=== PATIENT | female | born 1990 ===

== ENCOUNTER 2024-11-07 03:26 | Inpatient (IN) ==
[2024-11-07] MEDS ORDERED: LIDOCAINE 1% LOCAL 20 ML VIAL INFIL PRN (05:11)
[2024-11-07 06:19] LABS: Hematocrit (blood only) 40.1 % (37.0-47.0); Hemoglobin 13.9 g/dl (12.0-16.0); Mean Corpuscular Hemoglobin 31.2 pg (25.0-34.0); Mean Corpuscular Volume 89.9 fL (80.0-100.0); Platelet Count 174 K/uL (130-400); RDW Standard Deviation 46.0 fL (36.4-46.3); Red Blood Count 4.46 M/uL (4.20-5.40); White Blood Count 10.44 K/ul (4.8-10.8)
--- NOTE | 2024-11-07 07:17 | Anesthesiology Consultation ---
Date of Service November 07, 2024 Assessment & Plan (1) Encounter for pre-operative examination: Chart Review Chart Review: Patient NOT seen in Pre Admission Testing and Acceptable Risk for Labor Epidural Consults Requested none History Height/Weight Height: 5 ft 5 in Weight: 112 kg Allergies Allergy/AdvReac Type Severity Reaction Status Date / Time cefaclor Allergy Hives Verified 11/07/24 03:57 cefixime Allergy Hives Verified 11/07/24 03:57 ciprofloxacin Allergy Hives Verified 11/07/24 03:57 Sulfa (Sulfonamide Allergy Hives Verified 11/07/24 03:57 Antibiotics) Medications Home Medications Medication Instructions Recorded Confirmed Last Taken doxylamine succinate 25 mg tablet 25 mg PO HS PRN Insomnia 11/07/24 11/07/24 Unknown (Unisom (doxylamine)) ferrous sulfate 325 mg (65 mg 325 mg PO DAILY 11/07/24 11/07/24 11/06/24 iron) tablet loratadine 10 mg capsule 10 mg PO DAILY PRN allergies 11/07/24 11/07/24 Unknown vits no.133-ferrous 1 tab PO DAILY 11/07/24 11/07/24 11/06/24 fumarate 28 mg-folic acid 800 mcg tablet () sertraline 25 mg tablet (Zoloft) 25 mg PO HS 11/07/24 11/07/24 11/06/24 Past Medical History Medical History Anxiety Social History Smoking Status: Never smoker Hx Alcohol Use: No Hx Substance Use: No substance use type: does not use Physical Exam Vital Signs Last Vital Signs Temp 98.2 F 11/07/24 04:05 Pulse 86 11/07/24 07:13 Resp 18 11/07/24 04:05 BP 149/83 H 11/07/24 07:13 Testing Laboratory Results 11/07/24 05:59
[2024-11-07] MEDS ORDERED: diphenhydrAMINE 50 MG/ML VIAL IV PRN (07:18)
[2024-11-07] MEDS ORDERED: ROPIVACAINE 0.5% PF 5 MG/ML 20 ML VIAL EPI PRN (07:18)
[2024-11-07] MEDS ORDERED: NALBUPHINE HCL INJ 10 MG/ML AMP IV PRN (07:18)
[2024-11-07] MEDS ORDERED: NALOXONE HCL 1 MG in SODIUM CHLORIDE 0.9% 1,000 ML IV PRN (07:18)
[2024-11-07] MEDS ORDERED: LIDOCAINE 2% MPF LOCAL 5 ML VIAL EPI PRN (07:18)
[2024-11-07] MEDS ORDERED: BUPIVACAINE 0.25% PF 30 ML VIAL EPI PRN (07:18)
[2024-11-07] MEDS: LACTATED RINGER'S 1,000 ML IV PRN (07:18)
[2024-11-07] MEDS ORDERED: SODIUM CHLORIDE 0.9% PF INJ 10 ML VIAL EPI PRN (07:18)
[2024-11-07] MEDS ORDERED: NALOXONE HCL 0.4 MG/1 ML VIAL/CARP IV PRN (07:18)
[2024-11-07] MEDS: fentANYL 2 MCG/ML BUPIVacaine 0.125%-NSS 100ML BAG ONE (07:38)
[2024-11-07] MEDS: LIDOCAINE 2%/EPINEPHRINE 1:200,000 20 ML PF ONE (07:38)
[2024-11-07] MEDS: BUPIVACAINE 0.25% PF 30 ML VIAL ONE (07:39)
[2024-11-07] MEDS: LIDOCAINE 2%/EPINEPHRINE 1:200,000 20 ML PF EPI STA (08:37)
[2024-11-07] MEDS: SODIUM CHLORIDE 0.9% PF INJ 10 ML VIAL EPI STA (08:37)
[2024-11-07] MEDS: SODIUM CHLORIDE 0.9% PF INJ 10 ML VIAL ONE (08:37)
[2024-11-07] MEDS: BUPIVACAINE 0.25% PF 30 ML VIAL EPI STA (08:37)
--- NOTE | 2024-11-07 08:58 | History & Physical Report ---
Date of Service November 07, 2024 Assessment & Plan (1) Uterine contractions at greater than 20 weeks of gestation: Plan: 34-year-old -0-0-1 at 39 weeks and 6 days of gestation Admitted today in early labor, epidural in place, comfortable, Vital signs stable afebrile, GBS negative, Contractions spaced out, Plan to monitor, augment with oxytocin per protocol, patient desires to rest and delay AROM if possible, All questions were answered. (2) Anxiety: (3) MTHFR mutation: Plan: heterozygous, no history of DVT Admission and Anticipated Discharge Date Admission Date: November 07, 2024 History of Present Illness Primary Care Provider: NO PCP Patient is a 34-year-old -0-0-1 at 39 weeks and 6 days of gestation who was admitted this morning by Dr. Malik for labor. Patient started have contractions around 10:30 PM last night they got more regular and painful around 3 AM when she came in. She denied leakage of fluid or vaginal bleeding. She reported good movements. She was painful and asked for epidural and she already had 1 and comfortable now. Her has been uncomplicated except 1. Anxiety during , on Zoloft and stable, 2. Obesity during , 3. History of MTFR mutation, heterozygous, never had DVT Allergies Allergy/AdvReac Type Severity Reaction Status Date / Time cefaclor Allergy Hives Verified 11/07/24 03:57 cefixime Allergy Hives Verified 11/07/24 03:57 ciprofloxacin Allergy Hives Verified 11/07/24 03:57 Sulfa (Sulfonamide Allergy Hives Verified 11/07/24 03:57 Antibiotics) Home Medications Medication Instructions Recorded Confirmed Type doxylamine succinate 25 mg tablet 25 mg PO HS PRN Insomnia 11/07/24 11/07/24 History (Unisom (doxylamine)) ferrous sulfate 325 mg (65 mg 325 mg PO DAILY 11/07/24 11/07/24 History iron) tablet loratadine 10 mg capsule 10 mg PO DAILY PRN allergies 11/07/24 11/07/24 History vits no.133-ferrous 1 tab PO DAILY 11/07/24 11/07/24 History fumarate 28 mg-folic acid 800 mcg tablet () sertraline 25 mg tablet (Zoloft) 25 mg PO HS 11/07/24 11/07/24 History Patient History Medical History Anxiety Social History Smoking Status: Never smoker Hx Alcohol Use: No Hx Substance Use: No Preferred Language: [place] Communication Ability: Effective Visual Impairment: No Limitations Hearing Ability: Normal Dental Office Assistant Required: No Beliefs That Will Affect Care: None marital status: marital status details: Daniel (35) [phone] Current Living Situation: Spouse and Family Current Living Situation Comment: lives with , daughter, 1 dog current occupational status: employed 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 Review of Systems as per Subjective / HPI Physical Exam Constitutional: WD/WN, vitals as above well developed, well nourished and comfortable Genitourinary: normal external appearance OB Exam Abdomen: + vertex Manual OB Exam: + cervical dilation 4 cm, + cervical effacement 50% and + station high OB Exam Monitor Tracing: + external uterine monitor used and + category I Results & Data Vital Signs (Past 12 Hours) Vital Signs Temp Pulse Resp BP Pulse Ox Pulse Ox 11/07/24 08:50 100 11/07/24 08:50 100 H 11/07/24 08:45 100 11/07/24 08:45 110 H 11/07/24 08:40 100 11/07/24 08:40 100 H 11/07/24 08:35 100 11/07/24 08:35 94 H 11/07/24 08:35 148/76 H 11/07/24 08:30 100 11/07/24 08:30 104 H 11/07/24 08:25 100 11/07/24 08:25 91 H 11/07/24 08:20 100 11/07/24 08:20 103 H 11/07/24 08:20 100 H 11/07/24 08:20 156/75 H 11/07/24 08:15 100 11/07/24 08:15 91 H 11/07/24 08:10 100 11/07/24 08:10 96 H 11/07/24 08:07 95 H 11/07/24 08:07 159/87 H 11/07/24 08:05 100 11/07/24 08:05 93 H 11/07/24 08:00 100 11/07/24 08:00 93 H 11/07/24 07:55 100 11/07/24 07:55 92 H 11/07/24 07:50 99 11/07/24 07:50 88 11/07/24 07:49 87 11/07/24 07:49 129/71 11/07/24 07:47 88 11/07/24 07:47 126/63 11/07/24 07:45 18 11/07/24 07:45 98 11/07/24 07:45 87 11/07/24 07:45 92 H 11/07/24 07:45 129/64 11/07/24 07:43 92 H 11/07/24 07:43 128/60 11/07/24 07:41 91 H 11/07/24 07:41 138/64 11/07/24 07:40 98 11/07/24 07:40 88 11/07/24 07:39 89 11/07/24 07:39 143/77 H 11/07/24 07:37 82 11/07/24 07:37 126/64 11/07/24 07:36 93 H 11/07/24 07:36 112/50 L 11/07/24 07:35 98 11/07/24 07:35 95 H 11/07/24 07:32 98 11/07/24 07:30 18 11/07/24 07:30 37.0 C 18 11/07/24 07:30 90 11/07/24 07:30 102 H 11/07/24 07:25 100 11/07/24 07:25 94 H 11/07/24 07:20 98 11/07/24 07:20 95 H 11/07/24 07:13 86 11/07/24 07:13 149/83 H 11/07/24 07:12 90 11/07/24 07:12 180/89 H 11/07/24 04:05 36.8 C 18 11/07/24 03:50 94 H 126/82 Diagnostic Findings Lab Results 11/07/24 Range/Units 05:59 WBC 10.44 (4.8-10.8) K/ul RBC 4.46 (4.20-5.40) M/uL Hgb 13.9 (12.0-16.0) g/dl Hct 40.1 (37.0-47.0) % MCV 89.9 (80.0-100.0) fL MCH 31.2 (25.0-34.0) pg MCHC 34.7 (32.0-36.0) g/dL RDW Std Deviation 46.0 (36.4-46.3) fL RDW Coeff of Saravanan 14.1 (11.5-14.5) % Plt Count 174 (130-400) K/uL MPV 10.0 (9.4-12.4) fL Blood Type B Positive Antibody Screen NEGATIVE
[2024-11-07] MEDS: OXYTOCIN 30 UNITS/NSS 30 UNITS/500 ML BAG IV PRN ×2 (09:05→17:54)
--- NOTE | 2024-11-07 13:23 | Obstetrical Progress Note ---
Date of Service November 07, 2024 Assessment & Plan Admission and Anticipated Discharge Date Admission Date: November 07, 2024 Subjective Patient is still comfortable, no pain or pressure, heart rate category 1, had early decelerations earlier, Contractions every 2 to 3 minutes, oxytocin at 10 miu/min, Vaginal exam: time, 100%, +1 , no bulging bag, Continue to monitor closely, Will start pushing after bladder will be drained. Results & Data Vital Signs (Past 12 Hours) Vital Signs Temp Pulse Resp BP Pulse Ox Pulse Ox 11/07/24 13:15 100 11/07/24 13:15 98 H 11/07/24 13:10 99 11/07/24 13:10 98 H 11/07/24 13:05 100 11/07/24 13:05 105 H 11/07/24 13:05 131/88 11/07/24 13:00 99 11/07/24 13:00 107 H 11/07/24 12:55 100 11/07/24 12:55 106 H 11/07/24 12:50 99 11/07/24 12:50 106 H 11/07/24 12:50 99 H 11/07/24 12:50 137/90 11/07/24 12:45 100 11/07/24 12:45 106 H 11/07/24 12:40 99 11/07/24 12:40 103 H 11/07/24 12:35 100 11/07/24 12:35 96 H 11/07/24 12:35 127/71 11/07/24 12:30 100 11/07/24 12:30 99 H 11/07/24 12:25 100 11/07/24 12:25 94 H 11/07/24 12:20 100 11/07/24 12:20 95 H 11/07/24 12:20 97 H 11/07/24 12:20 114/66 11/07/24 12:15 100 11/07/24 12:15 93 H 11/07/24 12:10 100 11/07/24 12:10 101 H 11/07/24 12:05 100 11/07/24 12:05 98 H 11/07/24 12:05 107 H 11/07/24 12:05 126/70 11/07/24 12:00 100 11/07/24 12:00 97 H 11/07/24 11:55 100 11/07/24 11:55 104 H 11/07/24 11:51 96 H 11/07/24 11:51 124/72 11/07/24 11:50 99 11/07/24 11:50 94 H 11/07/24 11:45 100 11/07/24 11:45 108 H 11/07/24 11:40 99 11/07/24 11:40 103 H 11/07/24 11:35 99 11/07/24 11:35 91 H 11/07/24 11:35 99 H 11/07/24 11:35 115/63 11/07/24 11:30 18 11/07/24 11:30 36.6 C 18 11/07/24 11:30 99 11/07/24 11:30 101 H 11/07/24 11:25 99 11/07/24 11:25 99 H 11/07/24 11:21 98 H 11/07/24 11:21 117/65 11/07/24 11:20 99 11/07/24 11:20 94 H 11/07/24 11:15 99 11/07/24 11:15 97 H 11/07/24 11:10 100 11/07/24 11:10 95 H 11/07/24 11:05 100 11/07/24 11:05 92 H 11/07/24 11:05 96 H 11/07/24 11:05 114/61 11/07/24 11:00 99 11/07/24 11:00 92 H 11/07/24 10:55 98 11/07/24 10:55 102 H 11/07/24 10:50 99 11/07/24 10:50 101 H 11/07/24 10:50 108/60 11/07/24 10:45 100 11/07/24 10:45 103 H 11/07/24 10:40 100 11/07/24 10:40 111 H 11/07/24 10:36 99 H 11/07/24 10:36 119/56 L 11/07/24 10:35 100 11/07/24 10:35 104 H 11/07/24 10:30 100 11/07/24 10:30 99 H 11/07/24 10:25 100 11/07/24 10:25 109 H 11/07/24 10:20 99 11/07/24 10:20 105 H 11/07/24 10:20 108/62 11/07/24 10:15 100 11/07/24 10:15 114 H 11/07/24 10:10 99 11/07/24 10:10 106 H 11/07/24 10:07 107 H 11/07/24 10:07 124/68 11/07/24 10:05 100 11/07/24 10:05 107 H 11/07/24 10:00 100 11/07/24 10:00 115 H 11/07/24 09:55 100 11/07/24 09:55 107 H 11/07/24 09:50 97 11/07/24 09:50 110 H 11/07/24 09:50 104 H 11/07/24 09:50 130/76 11/07/24 09:45 99 11/07/24 09:45 106 H 11/07/24 09:40 100 11/07/24 09:40 105 H 11/07/24 09:35 99 11/07/24 09:35 102 H 11/07/24 09:35 120/70 11/07/24 09:30 99 11/07/24 09:30 104 H 11/07/24 09:25 100 11/07/24 09:25 100 H 11/07/24 09:21 101 H 11/07/24 09:21 118/71 11/07/24 09:20 98 11/07/24 09:20 103 H 11/07/24 09:15 99 11/07/24 09:15 103 H 11/07/24 09:10 100 11/07/24 09:10 113 H 11/07/24 09:05 16 11/07/24 09:05 36.9 C 16 11/07/24 09:05 99 11/07/24 09:05 105 H 11/07/24 09:05 106/57 L 11/07/24 09:00 100 11/07/24 09:00 105 H 11/07/24 08:55 99 11/07/24 08:55 100 H 11/07/24 08:51 101 H 11/07/24 08:51 109/58 L 11/07/24 08:50 100 11/07/24 08:50 100 H 11/07/24 08:45 100 11/07/24 08:45 110 H 11/07/24 08:40 100 11/07/24 08:40 100 H 11/07/24 08:35 100 11/07/24 08:35 94 H 11/07/24 08:35 148/76 H 11/07/24 08:30 100 11/07/24 08:30 104 H 11/07/24 08:25 100 11/07/24 08:25 91 H 11/07/24 08:20 100 11/07/24 08:20 103 H 11/07/24 08:20 100 H 11/07/24 08:20 156/75 H 11/07/24 08:15 100 11/07/24 08:15 91 H 11/07/24 08:10 100 11/07/24 08:10 96 H 11/07/24 08:07 95 H 11/07/24 08:07 159/87 H 11/07/24 08:05 100 11/07/24 08:05 93 H 11/07/24 08:00 100 11/07/24 08:00 93 H 11/07/24 07:55 100 11/07/24 07:55 92 H 11/07/24 07:50 99 11/07/24 07:50 88 11/07/24 07:49 87 11/07/24 07:49 129/71 11/07/24 07:47 88 11/07/24 07:47 126/63 11/07/24 07:45 18 11/07/24 07:45 98 11/07/24 07:45 87 11/07/24 07:45 92 H 11/07/24 07:45 129/64 11/07/24 07:43 92 H 11/07/24 07:43 128/60 11/07/24 07:41 91 H 11/07/24 07:41 138/64 11/07/24 07:40 98 11/07/24 07:40 88 11/07/24 07:39 89 11/07/24 07:39 143/77 H 11/07/24 07:37 82 11/07/24 07:37 126/64 11/07/24 07:36 93 H 11/07/24 07:36 112/50 L 11/07/24 07:35 98 11/07/24 07:35 95 H 11/07/24 07:32 98 11/07/24 07:30 18 11/07/24 07:30 37.0 C 18 11/07/24 07:30 90 11/07/24 07:30 102 H 11/07/24 07:25 100 11/07/24 07:25 94 H 11/07/24 07:20 98 11/07/24 07:20 95 H 11/07/24 07:13 86 11/07/24 07:13 149/83 H 11/07/24 07:12 90 11/07/24 07:12 180/89 H 11/07/24 04:05 36.8 C 18 11/07/24 03:50 94 H 126/82
--- NOTE | 2024-11-07 14:04 | Obstetrical Progress Note ---
Date of Service November 07, 2024 Assessment & Plan Admission and Anticipated Discharge Date Admission Date: November 07, 2024 Subjective Patient practiced pushing for a while now desires to labor down. heart rate category 1, Continue to monitor closely. Results & Data Vital Signs (Past 12 Hours) Vital Signs Temp Pulse Resp BP Pulse Ox Pulse Ox 11/07/24 14:00 100 11/07/24 14:00 83 11/07/24 13:55 100 11/07/24 13:55 97 H 11/07/24 13:51 96 H 11/07/24 13:51 129/70 11/07/24 13:50 98 11/07/24 13:50 88 11/07/24 13:45 99 11/07/24 13:45 94 H 11/07/24 13:40 100 11/07/24 13:40 101 H 11/07/24 13:36 100 H 11/07/24 13:36 136/80 11/07/24 13:35 100 11/07/24 13:35 99 H 11/07/24 13:30 100 11/07/24 13:30 101 H 11/07/24 13:25 100 11/07/24 13:25 101 H 11/07/24 13:25 102 H 11/07/24 13:25 130/78 11/07/24 13:20 99 11/07/24 13:20 101 H 11/07/24 13:15 100 11/07/24 13:15 98 H 11/07/24 13:10 99 11/07/24 13:10 98 H 11/07/24 13:05 100 11/07/24 13:05 105 H 11/07/24 13:05 131/88 11/07/24 13:00 99 11/07/24 13:00 107 H 11/07/24 12:55 100 11/07/24 12:55 106 H 11/07/24 12:50 99 11/07/24 12:50 106 H 11/07/24 12:50 99 H 11/07/24 12:50 137/90 11/07/24 12:45 100 11/07/24 12:45 106 H 11/07/24 12:40 99 11/07/24 12:40 103 H 11/07/24 12:35 100 11/07/24 12:35 96 H 11/07/24 12:35 127/71 11/07/24 12:30 100 11/07/24 12:30 99 H 11/07/24 12:25 100 11/07/24 12:25 94 H 11/07/24 12:20 100 11/07/24 12:20 95 H 11/07/24 12:20 97 H 11/07/24 12:20 114/66 11/07/24 12:15 100 11/07/24 12:15 93 H 11/07/24 12:10 100 11/07/24 12:10 101 H 11/07/24 12:05 100 11/07/24 12:05 98 H 11/07/24 12:05 107 H 11/07/24 12:05 126/70 11/07/24 12:00 100 11/07/24 12:00 97 H 11/07/24 11:55 100 11/07/24 11:55 104 H 11/07/24 11:51 96 H 11/07/24 11:51 124/72 11/07/24 11:50 99 11/07/24 11:50 94 H 11/07/24 11:45 100 11/07/24 11:45 108 H 11/07/24 11:40 99 11/07/24 11:40 103 H 11/07/24 11:35 99 11/07/24 11:35 91 H 11/07/24 11:35 99 H 11/07/24 11:35 115/63 11/07/24 11:30 18 11/07/24 11:30 36.6 C 18 11/07/24 11:30 99 11/07/24 11:30 101 H 11/07/24 11:25 99 11/07/24 11:25 99 H 11/07/24 11:21 98 H 11/07/24 11:21 117/65 11/07/24 11:20 99 11/07/24 11:20 94 H 11/07/24 11:15 99 11/07/24 11:15 97 H 11/07/24 11:10 100 11/07/24 11:10 95 H 11/07/24 11:05 100 11/07/24 11:05 92 H 11/07/24 11:05 96 H 11/07/24 11:05 114/61 11/07/24 11:00 99 11/07/24 11:00 92 H 11/07/24 10:55 98 11/07/24 10:55 102 H 11/07/24 10:50 99 11/07/24 10:50 101 H 11/07/24 10:50 108/60 11/07/24 10:45 100 11/07/24 10:45 103 H 11/07/24 10:40 100 11/07/24 10:40 111 H 11/07/24 10:36 99 H 11/07/24 10:36 119/56 L 11/07/24 10:35 100 11/07/24 10:35 104 H 11/07/24 10:30 100 11/07/24 10:30 99 H 11/07/24 10:25 100 11/07/24 10:25 109 H 11/07/24 10:20 99 11/07/24 10:20 105 H 11/07/24 10:20 108/62 11/07/24 10:15 100 11/07/24 10:15 114 H 11/07/24 10:10 99 11/07/24 10:10 106 H 11/07/24 10:07 107 H 11/07/24 10:07 124/68 11/07/24 10:05 100 11/07/24 10:05 107 H 11/07/24 10:00 100 11/07/24 10:00 115 H 11/07/24 09:55 100 11/07/24 09:55 107 H 11/07/24 09:50 97 11/07/24 09:50 110 H 11/07/24 09:50 104 H 11/07/24 09:50 130/76 11/07/24 09:45 99 11/07/24 09:45 106 H 11/07/24 09:40 100 11/07/24 09:40 105 H 11/07/24 09:35 99 11/07/24 09:35 102 H 11/07/24 09:35 120/70 11/07/24 09:30 99 11/07/24 09:30 104 H 11/07/24 09:25 100 11/07/24 09:25 100 H 11/07/24 09:21 101 H 11/07/24 09:21 118/71 11/07/24 09:20 98 11/07/24 09:20 103 H 11/07/24 09:15 99 11/07/24 09:15 103 H 11/07/24 09:10 100 11/07/24 09:10 113 H 11/07/24 09:05 16 11/07/24 09:05 36.9 C 16 11/07/24 09:05 99 11/07/24 09:05 105 H 11/07/24 09:05 106/57 L 11/07/24 09:00 100 11/07/24 09:00 105 H 11/07/24 08:55 99 11/07/24 08:55 100 H 11/07/24 08:51 101 H 11/07/24 08:51 109/58 L 11/07/24 08:50 100 11/07/24 08:50 100 H 11/07/24 08:45 100 11/07/24 08:45 110 H 11/07/24 08:40 100 11/07/24 08:40 100 H 11/07/24 08:35 100 11/07/24 08:35 94 H 11/07/24 08:35 148/76 H 11/07/24 08:30 100 11/07/24 08:30 104 H 11/07/24 08:25 100 11/07/24 08:25 91 H 11/07/24 08:20 100 11/07/24 08:20 103 H 11/07/24 08:20 100 H 11/07/24 08:20 156/75 H 11/07/24 08:15 100 11/07/24 08:15 91 H 11/07/24 08:10 100 11/07/24 08:10 96 H 11/07/24 08:07 95 H 11/07/24 08:07 159/87 H 11/07/24 08:05 100 11/07/24 08:05 93 H 11/07/24 08:00 100 11/07/24 08:00 93 H 11/07/24 07:55 100 11/07/24 07:55 92 H 11/07/24 07:50 99 11/07/24 07:50 88 11/07/24 07:49 87 11/07/24 07:49 129/71 11/07/24 07:47 88 11/07/24 07:47 126/63 11/07/24 07:45 18 11/07/24 07:45 98 11/07/24 07:45 87 11/07/24 07:45 92 H 11/07/24 07:45 129/64 11/07/24 07:43 92 H 11/07/24 07:43 128/60 11/07/24 07:41 91 H 11/07/24 07:41 138/64 11/07/24 07:40 98 11/07/24 07:40 88 11/07/24 07:39 89 11/07/24 07:39 143/77 H 11/07/24 07:37 82 11/07/24 07:37 126/64 11/07/24 07:36 93 H 11/07/24 07:36 112/50 L 11/07/24 07:35 98 11/07/24 07:35 95 H 11/07/24 07:32 98 11/07/24 07:30 18 11/07/24 07:30 37.0 C 18 11/07/24 07:30 90 11/07/24 07:30 102 H 11/07/24 07:25 100 11/07/24 07:25 94 H 11/07/24 07:20 98 11/07/24 07:20 95 H 11/07/24 07:13 86 11/07/24 07:13 149/83 H 11/07/24 07:12 90 11/07/24 07:12 180/89 H 11/07/24 04:05 36.8 C 18 11/07/24 03:50 94 H 126/82
[2024-11-07] MEDS: fentANYL 2 MCG/ML BUPIVacaine 0.125%-NSS 100ML BAG EPI PRN (15:45)
[2024-11-07] MEDS ORDERED: HYDROCORTISONE ACETATE 25 MG SUPP PR PRN (17:34)
[2024-11-07] MEDS ORDERED: OXYTOCIN 30 UNITS/NSS 30 UNITS/500 ML BAG IV PRN (17:34)
--- NOTE | 2024-11-07 17:43 | Delivery Summary ---
Vaginal Delivery Summary Date of Service November 07, 2024 Vaginal Delivery Summary After laboring down in different positions patient started to feel pressure and urge to push. She pushed for about 10 min and delivered the head and then shoulders with minimal traction. The baby was handed off to the mother. The cord was clampedx2 and cut at 3 minute delay per her request. The vagina and perineum were checked and found to have small 2nd degree perineal laceration. Rectal exam was done and noted good sphincter tone. The gloves were changes. The vaginal mucosa was repaired with 2/0 vicryl and skin on subcuticular fashion. The placenta was delivered spontaneously as intact and complete. The uterus was explored and found to be empty. QBL was 370 ml. The fundus was firm The baby was a viable female infant, Apgars 8/9, the weight is pending The mother and the baby tolerated the procedure well. No complications happened and I was present during whole procedure.
[2024-11-07] MEDS: DIPHTHER/TETAN/PERTUS Vaccine (Tdap, Adol/Adult) 0.5mL IM ONE (17:44)
[2024-11-07] MEDS: MEASLES, MUMPS & RUBELLA VIRUS VACCINE (MMR) 0.5ML VIAL SQ ONE (18:11)
--- NOTE | 2024-11-07 18:31 | Anesthesia Procedure Note ---
Date of Service November 07, 2024 Anesthesia Post Epidural Note Vital Signs Vital Signs: Temp Pulse Resp BP Pulse Ox 36.9 C 99 H 20 136/65 99 11/07/24 15:00 11/07/24 18:20 11/07/24 17:11 11/07/24 18:20 11/07/24 17:10 Notes Mental Status: alert / awake / arousable and participated in evaluation Nausea / Vomiting: adequately controlled Pain: adequately controlled Airway Patency, RR, SpO2: stable & adequate BP & HR: stable & adequate Hydration State: stable & adequate Neuraxial Anesthesia: was administered and sensory block is resolving Anesthetic Complications: no major complications apparent Epidural: Removed without complications and With tip intact
[2024-11-07] MEDS: SERTRALINE HCL 50 MG TABLET PO SCH (21:05)
[2024-11-07] MEDS: DOCUSATE SODIUM 100 MG CAP PO SCH (21:05)
[2024-11-07] MEDS: IBUPROFEN 600 MG TAB PO PRN (21:05)
[2024-11-07] MEDS: BENZOCAINE 20% SPRY 85 APPLN/85 GM CAN EXT PRN (21:07)
[2024-11-08] MEDS: ACETAMINOPHEN 325 MG TAB PO PRN (04:18)
[2024-11-08 07:14] LABS: Hematocrit (blood only) 32.9 % (37.0-47.0); Hemoglobin 11.7 g/dl (12.0-16.0); Mean Corpuscular Hemoglobin 32.3 pg (25.0-34.0); Mean Corpuscular Volume 90.9 fL (80.0-100.0); Platelet Count 162 K/uL (130-400); RDW Standard Deviation 46.9 fL (36.4-46.3); Red Blood Count 3.62 M/uL (4.20-5.40); White Blood Count 12.86 K/ul (4.8-10.8)
[2024-11-08] MEDS: PRENATAL VITAMIN 1 TAB PO SCH (08:56)
[2024-11-08] MEDS: FERROUS SULFATE 325 MG TAB PO SCH (08:57)
--- NOTE | 2024-11-08 08:58 | Discharge Summary ---
Date of Service November 08, 2024 Admission HPI Per Admitting Provider Patient is a 34-year-old -0-0-1 at 39 weeks and 6 days of gestation who was admitted this morning by Dr. Malik for labor. Patient started have contractions around 10:30 PM last night they got more regular and painful around 3 AM when she came in. She denied leakage of fluid or vaginal bleeding. She reported good movements. She was painful and asked for epidural and she already had 1 and comfortable now. Her has been uncomplicated except 1. Anxiety during , on Zoloft and stable, 2. Obesity during , 3. 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 * No lifting - nothing heavier than baby over the next 2-3 weeks. * Do not engage in vigorous exercise, sexual activity or sports until cleared by your physician. * Do not drive or operate any motorized equipment until cleared by your physician. * You may shower/bathe daily. BREAST CARE: If you are not breast feeding: * Wear a supportive bra 24 hours a day for one to two weeks. * Avoid stimulating your breasts and nipples as much as possible during the first few weeks after delivery. * When taking a shower, have the warm water hit your back, not breasts. * When your breasts feel full, apply ice packs. Usually three to four times a day helps ease the discomfort. * Take a mild pain medication (Tylenol/Motrin) when you are uncomfortable. If breast feeding: * Use breast milk to lubricate nipples. Lansinoh cream may be used for sore nipples. You do not need to remove cream prior to breast feeding. If using a different brand of cream, check the label for directions regarding removal of cream prior to nursing. * Wear a supportive bra. * If having problems with breasts or breast feeding, call a image consultant or your health care provider. EPISIOTOMY CARE: After delivery, if you have an episiotomy (stitches), the following steps will ease discomfort and aid healing. * For the first 24 hours after delivery, place ice packs next to your episiotomy to help reduce swelling. * After the first 24 hour-period, sitz baths, either portable or in the tub, are suggested. A shower with a shower arm sprayed over the episiotomy may be comforting. * Aline care should be done after each voiding and bowel movement. Squirt warm water from a plastic bottle over the perineum (region of the body between the anus and urinary opening) and pat dry. * Use Dermoplast to ease discomfort. Shake container. [place] directly over the episiotomy. * Place a Tucks on a clean sanitary pad next to your episiotomy. OVER THE COUNTER MEDICATION: * For discomfort or pain, you may use Acetaminophen (Tylenol), Ibuprofen (Advil), or Naproxen (Aleve) following the package directions. * For constipation you may use Colace following the package directions. SPECIAL CARE INSTRUCTIONS: When you are discharged from the hospital, it is important for you to follow the instructions listed below: * During the first week at home, you should be able to care for yourself and your baby. In addition, the usual light household activities are encouraged. * Limit your activities to the way you feel. Do not try to clean the house or move furniture. Be sensible. * If you actively engage in sports and have done so up until the time of your delivery, you may resume these activities as soon as you feel able. This may take up to one month or even longer. Use good judgment. * Continue to take your vitamins for at least six weeks after the of your baby. * Your diet need not be limited unless you were on a special diet before your delivery. Breast-feeding mothers need around 2500 calories per day and at least 64-80 ounces of fluid per day (8 to 10 glasses). * You should eat foods from the four major food groups. Crash diets or fad diets are to be avoided. Eating lean meats, fresh fruits and vegetables, low-fat dairy products, high fiber foods and a regular exercise program, will help you get back to your pre- weight without putting your health at risk. * Constipation is sometimes a problem after delivery. Take a mild laxative as needed. If breast feeding, Milk of Magnesia is acceptable to use. You may use a suppository or Fleets enema if no episiotomy. * A daily shower or tub bath is suggested. Be sure to thoroughly and gently dry the perineum. * A bloody vaginal discharge will usually continue until around four weeks post . A small amount of bleeding may continue for as long as six weeks. Vaginal discharge changes from the bright red bleeding after delivery to pink then brownish and finally yellowish-pink before becoming white and disappearing. * Bleeding may increase with activity. Your first period may come in 4-8 weeks. If you are breast feeding, your period may be delayed even longer. * [place] (sex) can begin whenever both you and your partner feel comfor table and do not have any form of genital infection. It is recommended that you wait until after your return appointment and discuss with your physician. If you have questions, please talk to your health care practitioner. A condom should be used to prevent infection and . * Foreplay, gentle intercourse and lubrication is very important the first several times to prevent pain. A water-based lubricant such as K-Y jelly or Astroglide may be used. * Tampons may be used six weeks after delivery. * Douching should be avoided for 6 weeks after delivery. * If you have RH negative blood and your baby is RH positive, you will receive RHOGAM by injection prior to discharge. The nurse will give you a card to keep with you that has the date and place that you received RHOGAM after delivery. * During your care, you had a Rubella screen done to check for the presence of rubella antibodies in your blood. If your test was negative, you will receive a Rubella vaccine prior to discharge. This vaccine may cause a fever, soreness at the injection site and flu-like symptoms. If these symptoms persist, notify your health care practitioner. is not advised for three months after a Rubella vaccine. There is a higher chance of having a baby with defects if conceived within three months of getting the vaccine. * If you were discharged 24 hours from delivery or before 48 hours: Visiting nurses will come to your home 48 hours after discharge to assess you and your baby. The visiting nurse will meet with you while you are in the hospital to arrange a time and get directions to your home. * Verbalizes understanding of car seat law as reviewed with patient nursing. * Car Seat hand-out given and reviewed with patient by nursing. * Shaken baby information reviewed with patient by nursing. Call you doctor if: * Heavy bleeding (saturating several pads an hour) or passing clots the size of your fist. * A fever >101 degrees F (38.3 degrees C) on two occasions four hours apart and/or chills. * Unusual pain in the pelvic or vaginal areas. * "Baby Blues" lasting longer than two weeks. If you have any questions or concerns, call your health care practitioner at . FOLLOW-UP VISIT: * Please call the office at to schedule 3 and 6 week examination. It is important you keep this appointment. * It is important for you to make arrangements for either yearly or twice yearly check-ups thereafter.
[2024-11-08] MEDS: SIMETHICONE 80 MG CHEW PO PRN (17:02)
[2024-11-09 00:44] VITALS: RESP 16; O2SAT 98
[2024-11-09 07:26] LABS: Hematocrit (blood only) 34.2 % (37.0-47.0); Hemoglobin 11.4 g/dl (12.0-16.0)
--- NOTE | 2024-11-09 09:17 | Obstetrical Progress Note ---
Date of Service November 09, 2024 Assessment & Plan (1) Vaginal delivery: discharge home Subjective Ambulation: ambulating normally Voiding: no voiding problems Passing Gas:: Yes Diet Tolerance:: regular diet Lochia:: Small Feeding Type:: breast feeding Current Pain Level(1-10): 0 doing well plans for d/c today Review of Systems All systems reviewed & are unremarkable except as noted in HPI & below Physical Exam Constitutional WD/WN, vitals as above Gastrointestinal (Abdomen) Inspection/Auscultation: abdomen normal to inspection abdomen soft and non-tender fundus firm below U Musculoskeletal no cyanosis or clubbing, extremities motor strength 5/5 Skin no rashes, warm and dry Neurologic patellar DTR's 2+ bilat, sensation intact Psychiatric A+Ox3, euthymic affect Results & Data Vital Signs (Past 12 Hours) Vital Signs Temp Pulse Resp BP Pulse Ox O2 Del Method 11/09/24 00:15 37 C 90 16 129/80 98 Room Air Laboratory Results Laboratory Results - last 72 hr 11/07/24 11/08/24 11/09/24 05:59 06:50 06:55 WBC 10.44 12.86 H RBC 4.46 3.62 L Hgb 13.9 11.7 L 11.4 L Hct 40.1 32.9 L 34.2 L MCV 89.9 90.9 MCH 31.2 32.3 MCHC 34.7 35.6 RDW Std Deviation 46.0 46.9 H RDW Coeff of [place] 14.1 14.1 Plt Count 174 162 MPV 10.0 9.7 Treponema pallidum Ab Negative Blood Type B Positive Antibody Screen NEGATIVE
[2024-11-09 10:57] VITALS: BP 137/82; PULSE 87; TEMP 99.3
== END 2024-11-09 13:33 | disposition home or self-care (01) | DRG 806 ==
LOC: OPB 03:26 → 4S1 03:38 → 4E2 20:06